=== PATIENT | male | born 1965 | race Hispanic/Latino ===

== ENCOUNTER 2019-11-09 03:08 | Inpatient (IN) | payer OTHER, SELFPAY ==
[2019-11-09] MEDS ORDERED: Morphine 4 MG/ML VIAL ONE (03:30)
[2019-11-09] MEDS ORDERED: Ondansetron PF 4 MG/2 ML Vial ONE (03:30)
[2019-11-09 04:21] LABS: #Basophils 0.1 thou/uL (0.0-0.2); #Eosinphils 0.1 thou/uL (0.0-0.7); #Lymphocytes 1.5 thou/uL (1.20-3.40); #Monocytes 0.5 thou/uL (0.11-0.59); #Neutrophils 7.3 thou/uL (1.40-6.50); %Basophils 0.7 % (0.0-1.0); %Lymphocytes 15.4 % (21.0-51.0); %Monocytes 5.7 % (0.0-10.0); %Neutrophils 77.2 % (42.0-75.0); Hemoglobin 16.8 g/dL (14.0-18.0); Mean Corpuscular HGB CONC 32.8 g/dL (32.0-36.0); Mean Corpuscular Volume 91.5 fL (78.0-98.0); Mean Platelet Volume 7.4 fL (7.4-10.4); Platelet Count 227 thou/uL (130-400); RBC Distribution Width 13.3 % (11.5-14.5); Red Blood Cell (RBC) Count 5.61 mill/uL (4.70-6.10); White Blood Cell (WBC) Count 9.5 thou/uL (4.8-10.8)
[2019-11-09 04:43] LABS: ALT (SGPT) 50 U/L (8-55); AST (SGOT) 135 U/L (5-34); Albumin 3.9 g/dL (3.5-5.0); Alkaline Phosphatase 60 U/L (40-110); Anion Gap 11 mmol/L (10-20); BUN (Urea Nitrogen) 13 mg/dL (8.4-25.7); Bilirubin, Total 1.1 mg/dL (0.2-1.2); Calc. Creatinine Clearance 0 mL/min (70-130); Calcium 7.9 mg/dL (7.8-10.44); Carbon Dioxide 24 mmol/L (22-29); Chloride 109 mmol/L (98-107); Estimated GFR-MDRD 74; Globulin 2.5 g/dL (2.4-3.5); Glucose 140 mg/dL (70-105); Lipase 159 U/L (8-78); Potassium 3.9 mmol/L (3.5-5.1); Protein, Total 6.4 g/dL (6.0-8.3); Sodium 140 mmol/L (136-145)
[2019-11-09] MEDS ORDERED: Acetaminophen 500 MG TAB ONE (05:42)
[2019-11-09] MEDS ORDERED: Ondansetron PF 4 MG/2 ML Vial IVP PRN (06:16)
[2019-11-09] MEDS ORDERED: Acetaminophen 325 MG TAB PO PRN (06:16)
[2019-11-09] MEDS ORDERED: Ondansetron ODT 4 MG TAB SL PRN (06:16)
[2019-11-09 06:32] VITALS: BMI 32.8
[2019-11-09] MEDS: Sodium Chloride 0.9% 1,000 ML IV SCH ×2 (06:41→17:26)
--- NOTE | 2019-11-09 08:05 | ULT ---
PRELIMINARY REPORT/[facility]/AFTER HOURS PROCEDURE LIMITED RIGHT UPPER QUADRANT ABDOMEN ULTRASOUND: CLINICAL HISTORY: Hx. RIGHT UPPER QUADRANT pain x 4 days. See notes on last image. Thanks. TECHNIQUE: Real-time ultrasound of the right upper quadrant with image documentation. COMPARISON: None provided. FINDINGS: LIVER: Unremarkable. GALLBLADDER: No gallstone. No wall thickening. Mild pericholecystic fluid is identified. COMMON BILE DUCT: No dilation. It measures 4.8 mm. PANCREAS: Pancreas is not well visualized due to bowel gas. RIGHT KIDNEY: A 4 mm stone is identified in the right kidney. The right kidney measures 11 x 4.9 x 5 .8 cm. IMPRESSION: Mildly distended gallbladder with pericholecystic fluid. No stones are identified. Further evaluati on with HIDA scan is recommended if patient right upper quadrant symptoms persist. Nonobstructing right kidney stone. ELECTRONICALLY SIGNED BY: Roland Jade MD Nov 09, 2019 4:46:12 AM BAKER This report is intended for review by the ordering physician only, in accordance of law. If you recei ve this report in error, please call [facility] at [phone]. FINAL REPORT EMERGENT AFTER HOURS GALLBLADDER ULTRASOUND: HISTORY: Right upper quadrant pain. FINDINGS: Real-time imaging of the right upper quadrant shows a slightly distended gallbladder. There is some f ocal fatty sparing adjacent to the gallbladder fossa. There is a question of some very minimal trace fluid adjacent to the gallbladder. The technologist does describe a positive ultrasound Cotton sign. No focal lesions are seen within the liver, which is of fairly diffuse increased echogenicity. The ri ght kidney is normal in size and not obstructed. There is an echogenic focus with shadowing in the mi d pole region, which would suggest a nonobstructing renal calculus. IMPRESSION: 1. Minimally distended gallbladder with some questionable minimal pericholecystic fluid. The technolo gist does describe a positive ultrasound Cotton sign. Consideration for hepatobiliary scan is suggest ed. 2. Fatty change of the liver. 3. Nonobstructing mid pole right renal calculus. This report is in agreement with the temporary report issued by [facility]. CODE QA POS: [facility]
--- NOTE | 2019-11-09 09:16 | PDOC.HHP ---
Hospitalist HPI - History of Present Illness Abdominal pain History of Present Illness: This is a 54-year-old male with past medical history of hypertension and hyperlipidemia who presented to the hospital with a right upper quadrant abdominal pain. The patient stated that his pain has been off and on for the past month but yesterday the pain has been severe and constant. He was not able to eat or drink anything since last night. Denies fever, chills, nausea, or vomiting. Denies chest pain or trouble breathing. Hospitalist ROS - Review of Systems All other systems reviewed; all pertinent +/- noted in HPI/Subj - Medication Medications: Active Medications Generic Name Dose Route Start Last Admin Trade Name Freq PRN Reason Stop Dose Admin Sodium Chloride 1,000 mls @ 100 mls/hr 11/09/19 06:16 11/09/19 06:41 Normal Saline 0.9% IV 11/09/19 17:15 1,000 mls .Q10H RITESH Administration Hospitalist History - Past Medical History Source: patient, family Cardiac: reports: HTN, Hyperlipidemia - Past Surgical History Past Surgical History: reports: no pertinent history - Family History Family History: reports: no pertinent history - Social History Smoking Status: Current every day smoker Alcohol: reports: Occassional Activity level: independent ambulation - Exam General Appearance: awake alert Eye: PERRL, anicteric sclera ENT: normocephalic atraumatic, no oropharyngeal lesions, moist mucosa Neck: supple, no JVD Heart: RRR, no murmur, no gallops, no rubs, normal peripheral pulses Respiratory: CTAB, no wheezes, no rales, no ronchi, normal chest expansion, no tachypnea, normal percussion Gastrointestinal: soft, no guarding, no rigidity, tender to palpation (RUQ - Cotton's sign) Extremities: no cyanosis, no clubbing, no edema Neurological: cranial nerve grossly intact, normal sensation to touch, no weakness, no focal deficits, no new deficit Psychiatric: normal affect, normal behavior, A&O x 3 Hospitalist Results - Labs Result Diagrams: 11/09/19 04:14 11/09/19 04:14 Lab results: WBC 9.5 thou/uL (4.8-10.8) 11/09/19 04:14 Hgb 16.8 g/dL (14.0-18.0) 11/09/19 04:14 Hct 51.3 % (42.0-52.0) 11/09/19 04:14 MCV 91.5 fL (78.0-98.0) 11/09/19 04:14 Plt Count 227 thou/uL (130-400) 11/09/19 04:14 Neutrophils % 77.2 % (42.0-75.0) H 11/09/19 04:14 Sodium 140 mmol/L (136-145) 11/09/19 04:14 Potassium 3.9 mmol/L (3.5-5.1) 11/09/19 04:14 Chloride 109 mmol/L (98-107) H 11/09/19 04:14 Carbon Dioxide 24 mmol/L (22-29) 11/09/19 04:14 BUN 13 mg/dL (8.4-25.7) 11/09/19 04:14 Creatinine 1.05 mg/dL (0.7-1.3) 11/09/19 04:14 Glucose 140 mg/dL (70-105) H 11/09/19 04:14 Calcium 7.9 mg/dL (7.8-10.44) 11/09/19 04:14 Total Bilirubin 1.1 mg/dL (0.2-1.2) 11/09/19 04:14 AST 135 U/L (5-34) H 11/09/19 04:14 ALT 50 U/L (8-55) 11/09/19 04:14 Alkaline Phosphatase 60 U/L (40-110) 11/09/19 04:14 Serum Total Protein 6.4 g/dL (6.0-8.3) 11/09/19 04:14 Albumin 3.9 g/dL (3.5-5.0) 11/09/19 04:14 Lipase 159 U/L (8-78) H 11/09/19 04:14 Hospitalist H&P A/P - Problem (1) Acute cholecystitis Code(s): K81.0 - ACUTE CHOLECYSTITIS Status: Acute (2) HTN (hypertension) Code(s): I10 - ESSENTIAL (PRIMARY) HYPERTENSION Status: Acute (3) Hyperlipidemia Code(s): E78.5 - HYPERLIPIDEMIA, UNSPECIFIED Status: Acute - Plan Plan: Patient with risk factors for biliary stones presented with right upper quadrant abdominal pain and tenderness on examination. No signs of sepsis are present. Ultrasound of the right upper quadrant in the ER showed distended gallbladder with pericholecystic fluid without evidence of stones or dilated common bile duct. Blood chemistry results showing slightly elevated AST and lipase but otherwise unremarkable. This is not a clear-cut case for acute cholecystitis. However, since the diagnosis is likely we will proceed with a HIDA scan. If the gallbladder is not visualized or reduced ejection fraction is present then the patient will most likely be a candidate for surgery. This was discussed with Dr. Powers.
[2019-11-09] MEDS ORDERED: Ketorolac Tromethamine 30 MG/ML VIAL IVP PRN (09:23)
--- NOTE | 2019-11-09 09:49 | RAD ---
PORTABLE CHEST: HISTORY: Right sided chest pain. COMPARISON: 01/11/2015 FINDINGS: Heart size is within normal limits considering the portable, slightly lordotic technique. The lungs a ppear clear of any infiltrates. No signs of failure. IMPRESSION: No active intrathoracic disease. POS: [facility]
[2019-11-10] MEDS: Enoxaparin Sodium 40 MG/0.4 ML SYRINGE SC SCH (07:58)
--- NOTE | 2019-11-10 09:22 | NM ---
HEPATOBILIARY SCAN: HISTORY:Right upper quadrant abdominal pain RADIOPHARMACEUTICAL: 5.5 mCi Technetium 99m Mebrofenin injected intravenously FINDINGS: There is normal tracer extraction by the liver without normal excretion into the biliary tracts and s mall bowel loops and normal filling of the gallbladder on initial imaging up to 3 hours. Delayed imaging was performed at 20 hours which demonstrated intense tracer localization within the g allbladder and tracer material in the small bowel loops.. IMPRESSION: 1. No evidence of acute cholecystitis or biliary obstruction. 2. Findings are suggestive of hepatocellular dysfunction.
[2019-11-10 09:38] LABS: Hemoglobin 18.5 g/dL (14.0-18.0); Mean Corpuscular HGB CONC 31.9 g/dL (32.0-36.0); Mean Corpuscular Hemoglobin 29.1 pg (27.0-31.0); Mean Corpuscular Volume 91.4 fL (78.0-98.0); Mean Platelet Volume 7.6 fL (7.4-10.4); Platelet Count 256 thou/uL (130-400); RBC Distribution Width 13.5 % (11.5-14.5); Red Blood Cell (RBC) Count 6.37 mill/uL (4.70-6.10); White Blood Cell (WBC) Count 7.6 thou/uL (4.8-10.8)
[2019-11-10 10:01] LABS: ALT (SGPT) 386 U/L (8-55); AST (SGOT) 459 U/L (5-34); Albumin 4.4 g/dL (3.5-5.0); Alkaline Phosphatase 101 U/L (40-110); Anion Gap 10 mmol/L (10-20); BUN (Urea Nitrogen) 8 mg/dL (8.4-25.7); Bilirubin, Total 3.1 mg/dL (0.2-1.2); Calc. Creatinine Clearance 104 mL/min (70-130); Calcium 8.6 mg/dL (7.8-10.44); Carbon Dioxide 25 mmol/L (22-29); Chloride 109 mmol/L (98-107); Estimated GFR-MDRD 80; Globulin 2.9 g/dL (2.4-3.5); Glucose 100 mg/dL (70-105); Potassium 3.8 mmol/L (3.5-5.1); Protein, Total 7.3 g/dL (6.0-8.3); Sodium 140 mmol/L (136-145)
[2019-11-10 12:00] LABS: Band 3 % (5-11); Eosinophils 2 % (0-10); Lymphocytes 22 % (21-51); MDiff Complete? YES; Monocytes 3 % (0-10); Neutrophil 63 % (42-75); RBC Morphology Normal; Reactive Lymphocytes 5 % (0-10)
[2019-11-10 12:45] LABS: Iron 220 ug/dL (65-175); Iron Binding Capacity, Total 379 mcg/dL (261-462)
[2019-11-10 13:18] LABS: HBSAg Index 0.18 S/CO (0-0.99); Hep B Core Total Ab Non-Reactive (NonReactive); Hep B Core Total Index 0.06 S/CO (0-0.79); Hep B Surf AB Non-Reactive (NonReactive); Hep B Surf Ag Non-Reactive S/CO (NonReactive); Hep C IgG Ab Non-Reactive (NonReactive); Hep C Index 0.09 S/CO (0-0.79)
--- NOTE | 2019-11-10 15:02 | CON ---
DATE OF CONSULTATION: 11/10/2019 REASON FOR CONSULTATION: Elevated LFTs and concern for possible hemochromatosis. REQUESTING PHYSICIAN: Dr. Bailey. HISTORY OF PRESENT ILLNESS: Antonio Sumner is a very pleasant 54-year-old man with a history of hypertension and hyperlipidemia. No prior history of gastrointestinal, liver, or biliary issues. He recalls about a month ago he had several days of significant right upper quadrant pain and nausea. The pain was relieved after several episodes of emesis. He had a little bit of mild diarrhea at that time. He did not seek medical care at that time. He did well for several weeks just with some mild intermittent right upper quadrant discomfort, but now for the past 2 to 3 days, he has again had severe pain in the right upper quadrant, also involving the epigastrium, associated with nausea, though no vomiting. He has not had any diarrhea during this time. There has been no fever. He presented to the emergency department yesterday, and abdominal ultrasound demonstrated some mild gallbladder wall thickening as well as mild pericholecystic fluid, but no gallstones evident. The common bile duct was normal at 4.8 mm. He was admitted to the hospital, and thereafter, had a HIDA scan performed. The HIDA scan demonstrated no evidence of biliary obstruction. There was normal filling of the gallbladder and emptying of the gallbladder. LFTs on admission showed total bilirubin only 1.1 with AST 135, but LFTs have jumped up dramatically after 1 day with total bilirubin up to 3.1, AST 459, ALT 386, and lipase 159. Ferritin is normal at 49.4. Hemoglobin was 18.5, and therapeutic phlebotomy was actually performed earlier today. Currently, the patient states he is feeling a lot better with regard to abdominal discomfort. He is no longer nauseated. He is tolerating a regular diet. PAST MEDICAL HISTORY: 1. Hypertension. 2. Hyperlipidemia. PAST SURGICAL HISTORY: None. FAMILY HISTORY: Noncontributory. Negative for GI or liver illness. Multiple family members have had cholecystectomies. SOCIAL HISTORY: He does smoke. Alcohol use is rare, none for the past couple of weeks. ALLERGIES: NO KNOWN DRUG ALLERGIES. OUTPATIENT MEDICATIONS: 1. Zetia 10 mg p.o. nightly. 2. Zocor 20 mg p.o. nightly. 3. Terazosin 2 mg daily. 4. Testosterone. INPATIENT MEDICATIONS: 1. Toradol p.r.n. 2. Lovenox 40 mg subcutaneously daily. PHYSICAL EXAMINATION: VITAL SIGNS: Temperature 98.0, pulse 75, blood pressure 124/85, and 94% oxygen saturation on room air. GENERAL: A 54-year-old man, lying in bed comfortably, in no distress. SKIN: No jaundice. No rashes were palpable. EYES: He does have mild scleral icterus. Extraocular movements intact. ENT: Mucous membranes moist. No oral lesions. LYMPHATRIC: No submandibular or supraclavicular lymphadenopathy. THYROID: Nontender to palpation. HEART: Regular rate and rhythm. LUNGS: Clear to auscultation bilaterally. ABDOMEN: Nondistended. Bowel sounds present. Soft. Some tenderness to palpation in the epigastrium, less so in the right upper quadrant. The remainder of the abdomen is nontender. No guarding or rebound tenderness. EXTREMITIES: No peripheral edema. VESSELS: Radial pulses 2+ bilaterally. NEUROLOGIC: Cranial nerves 2 through 12 intact bilaterally. No focal deficits. LABORATORY STUDIES: Total bilirubin initially 1.1, now up to 3.1; alkaline phosphatase is normal at 101; AST initially 135, now up to 459; ALT initially 50, now up to 386; albumin is 4.4. BUN is 8, creatinine 0.98, glucose 100, sodium 140, and potassium 3.9. Hemoglobin 18.5, WBC 7.6, platelets 256, and MCV normal at 91.4. Viral hepatitis serologies are all negative. Ferritin is normal at 49.4, iron 220, TIBC normal at 379, and ceruloplasmin is pending. IMAGING STUDIES: Abdominal ultrasound showed mild gallbladder distention and mild pericholecystic fluid, but no gallstones. Normal common bile duct 4.8 mm. HIDA scan showed normal filling and emptying of the gallbladder. ASSESSMENT AND PLAN: 1. Right upper quadrant pain. 2. Elevated liver function tests, acute just over the past day. Clinically, the present the patient's presentation seems most consistent with episodes of biliary colic. I note the abdominal ultrasound suggested some pericholecystic fluid, but on the other hand, I do see the normal HIDA scan, but with such an acute elevation in LFTs even after presentation, this seems less likely to represent a primary hepatocellular process to me. Obviously, we will round out the workup, get autoimmune markers, toxin screen, etc., but we will request formal surgical opinion on this as well. Trend LFTs tomorrow. If the LFTs continue to trend up and labs are otherwise unrevealing, I would get further imaging with MRCP. Thank you for the consultation. Please call anytime with questions or concerns. Job ID: [id number]
--- NOTE | 2019-11-10 16:15 | PDOC.HOSPP ---
- Subjective Encounter Date: 11/10/19 Subjective: The patient was seen and examined. He is feeling better today. Denied any abdominal pain. Stated that he feels hungry and would like to eat. HIDA scan test was completed today. - Objective Vital Signs & Weight: Vital Signs (12 hours) Temp Pulse Resp BP Pulse Ox 11/10/19 12:50 98.0 F 75 12 124/85 94 L Weight Weight 185 lb 5 oz I&O: 11/09/19 11/10/19 11/11/19 06:59 06:59 06:59 Intake Total 1000 Balance 1000 Result Diagrams: 11/10/19 09:18 11/10/19 09:18 Hospitalist ROS - Medication Medications: Active Medications Generic Name Dose Route Start Last Admin Trade Name Freq PRN Reason Stop Dose Admin Enoxaparin Sodium 40 mg 11/10/19 09:00 11/10/19 07:58 Lovenox SC Not Given 0900 RITESH Ketorolac Tromethamine 15 mg 11/09/19 09:23 11/09/19 09:50 Toradol IVP 11/14/19 09:24 15 mg Q6H PRN Administration Pain - Exam General Appearance: NAD, awake alert Eye: PERRL, anicteric sclera ENT: normocephalic atraumatic, no oropharyngeal lesions, moist mucosa Neck: supple, symmetric, no JVD, no thyromegaly, no lymphadenopathy, no carotid bruit Heart: RRR, no murmur, no gallops, no rubs, normal peripheral pulses Respiratory: CTAB, no wheezes, no rales, no ronchi, normal chest expansion, no tachypnea, normal percussion Gastrointestinal: soft, non-tender, non-distended, normal bowel sounds, no palpable masses, no hepatomegaly, no splenomegaly, no bruit Neurological: cranial nerve grossly intact, no focal deficits Hosp A/P (1) Acute cholecystitis Code(s): K81.0 - ACUTE CHOLECYSTITIS Status: Acute (2) HTN (hypertension) Code(s): I10 - ESSENTIAL (PRIMARY) HYPERTENSION Status: Acute (3) Hyperlipidemia Code(s): E78.5 - HYPERLIPIDEMIA, UNSPECIFIED Status: Acute (4) Abnormal LFTs Code(s): R94.5 - ABNORMAL RESULTS OF LIVER FUNCTION STUDIES Status: Acute (5) Biliary colic Code(s): K80.50 - CALCULUS OF BILE DUCT W/O CHOLANGITIS OR CHOLECYST W/O OBST Status: Acute - Plan 11/09: Patient with risk factors for biliary stones presented with right upper quadrant abdominal pain and tenderness on examination. No signs of sepsis are present. Ultrasound of the right upper quadrant in the ER showed distended gallbladder with pericholecystic fluid without evidence of stones or dilated common bile duct. Blood chemistry results showing slightly elevated AST and lipase but otherwise unremarkable. This is not a clear-cut case for acute cholecystitis. However, since the diagnosis is likely we will proceed with a HIDA scan. If the gallbladder is not visualized or reduced ejection fraction is present then the patient will most likely be a candidate for surgery. This was discussed with Dr. Powers. 11/10: HIDA scan showing no evidence of biliary disease. Hepatic dysfunction was noted. The patient's AST and ALT in addition to bilirubin are trending up. The right upper quadrant ultrasound did show distended gallbladder with pericholecystic fluid and gastroenterology seems to think this is related to biliary colic. We are trying to rule out other possibilities of liver disease. Paraspinal has been ordered in addition to iron studies, autoimmune studies, and ceruloplasmin. Appreciate gastroenterology surgical services. This dictation was completed using advanced voice recognition dictation software. There may be some errors in grammar, punctuation, context or verbiage that were not identified and corrected at the time of this dictation. If questions are present, please consult the author of this dictation for further clarification. It is my goal to try to catch these mistakes at the time of dictation but errors may still occur. Thank you for your understanding.
[2019-11-11 05:48] LABS: #Basophils 0.1 thou/uL (0.0-0.2); #Eosinphils 0.4 thou/uL (0.0-0.7); #Lymphocytes 2.5 thou/uL (1.20-3.40); #Monocytes 0.7 thou/uL (0.11-0.59); #Neutrophils 5.4 thou/uL (1.40-6.50); %Basophils 0.7 % (0.0-1.0); %Eosinophils 3.9 % (0.0-10.0); %Monocytes 7.6 % (0.0-10.0); %Neutrophils 59.9 % (42.0-75.0); Hemoglobin 16.9 g/dL (14.0-18.0); Mean Corpuscular HGB CONC 31.7 g/dL (32.0-36.0); Mean Corpuscular Hemoglobin 29.6 pg (27.0-31.0); Mean Corpuscular Volume 93.1 fL (78.0-98.0); Mean Platelet Volume 7.6 fL (7.4-10.4); Platelet Count 245 thou/uL (130-400); RBC Distribution Width 13.7 % (11.5-14.5); Red Blood Cell (RBC) Count 5.71 mill/uL (4.70-6.10); White Blood Cell (WBC) Count 9.1 thou/uL (4.8-10.8)
[2019-11-11 06:06] LABS: ALT (SGPT) 234 U/L (8-55); AST (SGOT) 259 U/L (5-34); Acetaminophen Less than 6.0 mcg/mL (10.0-30.0); Albumin 3.9 g/dL (3.5-5.0); Alcohol Less than 10 mg/dL (Less than 10); Alkaline Phosphatase 81 U/L (40-110); Anion Gap 10 mmol/L (10-20); BUN (Urea Nitrogen) 11 mg/dL (8.4-25.7); Bilirubin, Total 1.4 mg/dL (0.2-1.2); Calc. Creatinine Clearance 112 mL/min (70-130); Calcium 8.2 mg/dL (7.8-10.44); Carbon Dioxide 24 mmol/L (22-29); Chloride 107 mmol/L (98-107); Estimated GFR-MDRD 87; Globulin 2.6 g/dL (2.4-3.5); Glucose 113 mg/dL (70-105); Potassium 3.8 mmol/L (3.5-5.1); Protein, Total 6.5 g/dL (6.0-8.3); Salicylate Less than 8.0 mg/dL (15.0-30.0); Sodium 137 mmol/L (136-145)
[2019-11-11] MEDS: Enoxaparin Sodium 40 MG/0.4 ML SYRINGE SC SCH (08:08)
[2019-11-11 11:57] LABS: ANA Symphony (Qualitative) Negative (Negative); ANA Symphony (Quantitative) 0.2 Ratio (< 0.7 Negative); EliA Vaculitis New Method **** NEW METHOD ****; Mitochondrial Ab 0.6 U/mL (<4 Negative); dsDNA IgG Antibody Less than 0.5 IU/mL (<10 Negative)
--- NOTE | 2019-11-11 12:43 | CON ---
DATE OF CONSULTATION: 11/11/2019 CHIEF COMPLAINT: Right upper quadrant and right-sided abdominal pain. HISTORY OF PRESENT ILLNESS: This is a 54-year-old male with a history of acute onset of sharp pain in his right upper abdomen started after dinner 2 nights ago. The pain was so severe, brought him to the emergency room. He had ultrasound showing no gallstones. There was a distended gallbladder and evidence of pericholecystic fluid. He had a normal common bile duct. He has had a hepatobiliary scan showing good uptake and normal ejection fraction. No evidence of acalculous cholecystitis. His pain has resolved. He is hungry. He notes no known history of liver disease. He states he had one previous episode of this before in [place] that resolved on its own. PAST MEDICAL HISTORY: Includes hypertension and hyperlipidemia. PAST SURGICAL HISTORY: Denies. MEDICATIONS: Taken daily; 1. Zetia. 2. Zocor. 3. Terazosin. 4. Testosterone. ALLERGIES: NO KNOWN DRUG ALLERGIES. SOCIAL HISTORY: Denies smoking, alcohol, or other drugs. REVIEW OF SYSTEMS: Ten-system review of systems is otherwise negative unless described above. PHYSICAL EXAMINATION: HEENT: Sclerae are anicteric. Oropharynx clear. NECK: No lymphadenopathy. CHEST: Clear. HEART: Regular rate. ABDOMEN: Soft, nontender, nondistended. EXTREMITIES: No ischemia or edema to extremities. LABORATORY DATA: White cell count is 9, hemoglobin is 16, platelet count is 245. Sodium 137, potassium 3.8, creatinine 0.91, bilirubin 1.4, AST and ALT are 259 and 234, alkaline phosphatase normal. Lipase was 159 on 11/09, normal today. Hepatitis panel nonreactive. X-rays as above. ASSESSMENT: Right upper quadrant pain with associated hepatic dysfunction of unknown etiology. His pain has resolved. His hepatobiliary scan is normal. PLAN: I would probably hold off on cholecystectomy until the true etiology of his liver dysfunction is determined. His symptoms have appeared to resolve. He is in no danger with his HIDA scan showing good filling and ejection fraction. He has my card to follow up in my office if the pain persists. We will follow on an as-needed basis. Job ID: [id number]
--- NOTE | 2019-11-11 15:01 | PRG ---
DATE OF SERVICE: 11/11/2019 SUBJECTIVE: Mr. Sumner is feeling pretty well, but his epigastric pain does persist. He is tolerating his diet. He has been afebrile. OBJECTIVE: VITAL SIGNS: Temperature 97.7, pulse 70, blood pressure 104/70, 96% oxygen saturation on room air. GENERAL: No acute distress. HEART: Regular rate and rhythm. LUNGS: Clear to auscultation bilaterally. ABDOMEN: Bowel sounds are present. Soft. Some tenderness to palpation in the epigastrium. No guarding or rebound tenderness. EXTREMITIES: No peripheral edema. LABORATORY STUDIES: WBC 9.1, hemoglobin 16.9, platelets 245. Sodium 137, potassium 3.8, BUN 11, creatinine 0.91, glucose 113, calcium 8.2. Ferritin only 49.4, iron 220, TIBC 379. LFTs have all trended down today. Total bilirubin went down from 3.1 to 1.4. AST went from 459 to 259. ALT went from 386 to 234. Alkaline phosphatase is 81. Albumin 3.9. Serum acetaminophen, salicylate, and alcohol levels all undetectable. PEGGY is negative. AMA is negative. Smooth muscle antibody pending. Viral hepatitis serologies all negative. ASSESSMENT AND PLAN: 1. Right upper quadrant and epigastric pain. 2. Elevated liver function tests, with acute spike yesterday, now downtrending. 3. Mild lipase elevation, on presentation. Dr. Nj evaluated the patient earlier today. I appreciate his assistance and opinion. Given the patient has had clinical improvement as well as the downtrending LFTs, Dr. Nj is not planning on proceeding with any cholecystectomy at this point. I remain of the opinion that the patient's presentation likely did represent biliary colic, either a mild cholecystitis or possibly having passed non-echogenic stone or sludge. I do note the normal HIDA scan. I think the patient's diet can be advanced as tolerated. Plan to recheck LFTs tomorrow. If he has had continued improvement and the LFTs continue to trend down, then I think he could potentially be discharged from the hospital. If the LFTs were to bump up again or the patient's symptoms were to escalate, then I would get further imaging with MRCP. From a liver laboratory standpoint, we are waiting only ceruloplasmin and anti-smooth muscle antibody, which I do not expect to be abnormal or clinically significant. Job ID: [id number]
--- NOTE | 2019-11-11 15:39 | PDOC.HOSPP ---
- Subjective Encounter Date: 11/11/19 Subjective: Feels Better. - Objective Vital Signs & Weight: Vital Signs (12 hours) Temp Pulse Resp BP Pulse Ox 11/11/19 08:00 96 11/11/19 07:53 97.7 F 70 19 104/70 96 11/11/19 05:44 98.7 F 74 16 104/70 95 Weight Weight 185 lb 5 oz Result Diagrams: 11/11/19 05:18 11/11/19 05:18 Hospitalist ROS - Medication Medications: Active Medications Generic Name Dose Route Start Last Admin Trade Name Freq PRN Reason Stop Dose Admin Enoxaparin Sodium 40 mg 11/10/19 09:00 11/11/19 08:08 Lovenox SC 40 mg 0900 RITESH Administration Ketorolac Tromethamine 15 mg 11/09/19 09:23 11/09/19 09:50 Toradol IVP 11/14/19 09:24 15 mg Q6H PRN Administration Pain - Exam Eye: PERRL, anicteric sclera ENT: normocephalic atraumatic, no oropharyngeal lesions, moist mucosa Neck: supple, symmetric, no JVD, no thyromegaly, no lymphadenopathy, no carotid bruit Heart: RRR, no murmur, no gallops, no rubs, normal peripheral pulses Respiratory: CTAB, no wheezes, no rales, no ronchi, normal chest expansion, no tachypnea, normal percussion Gastrointestinal: soft, non-tender, non-distended, normal bowel sounds, no palpable masses, no hepatomegaly, no splenomegaly, no bruit Hosp A/P (1) Acute cholecystitis Code(s): K81.0 - ACUTE CHOLECYSTITIS Status: Acute (2) HTN (hypertension) Code(s): I10 - ESSENTIAL (PRIMARY) HYPERTENSION Status: Acute (3) Hyperlipidemia Code(s): E78.5 - HYPERLIPIDEMIA, UNSPECIFIED Status: Acute (4) Abnormal LFTs Code(s): R94.5 - ABNORMAL RESULTS OF LIVER FUNCTION STUDIES Status: Acute (5) Biliary colic Code(s): K80.50 - CALCULUS OF BILE DUCT W/O CHOLANGITIS OR CHOLECYST W/O OBST Status: Acute - Plan 11/09: Patient with risk factors for biliary stones presented with right upper quadrant abdominal pain and tenderness on examination. No signs of sepsis are present. Ultrasound of the right upper quadrant in the ER showed distended gallbladder with pericholecystic fluid without evidence of stones or dilated common bile duct. Blood chemistry results showing slightly elevated AST and lipase but otherwise unremarkable. This is not a clear-cut case for acute cholecystitis. However, since the diagnosis is likely we will proceed with a HIDA scan. If the gallbladder is not visualized or reduced ejection fraction is present then the patient will most likely be a candidate for surgery. This was discussed with Dr. Powers. 11/10: HIDA scan showing no evidence of biliary disease. Hepatic dysfunction was noted. The patient's AST and ALT in addition to bilirubin are trending up. The right upper quadrant ultrasound did show distended gallbladder with pericholecystic fluid and gastroenterology seems to think this is related to biliary colic. We are trying to rule out other possibilities of liver disease. Paraspinal has been ordered in addition to iron studies, autoimmune studies, and ceruloplasmin. Appreciate gastroenterology surgical services. 11/11: The patient is feeling better. Was able to tolerate his diet and is ambulating well. LFTs are trending down. Surgical team recommended against cholecystectomy. If his liver function tests and symptoms continue to improve, we will plan to discharge him tomorrow. This dictation was completed using advanced voice recognition dictation software. There may be some errors in grammar, punctuation, context or verbiage that were not identified and corrected at the time of this dictation. If questions are present, please consult the author of this dictation for further clarification. It is my goal to try to catch these mistakes at the time of dictation but errors may still occur. Thank you for your understanding.
[2019-11-12 06:04] LABS: ALT (SGPT) 145 U/L (8-55); AST (SGOT) 162 U/L (5-34); Albumin 3.8 g/dL (3.5-5.0); Alkaline Phosphatase 88 U/L (40-110); Anion Gap 10 mmol/L (10-20); BUN (Urea Nitrogen) 14 mg/dL (8.4-25.7); Bilirubin, Total 0.6 mg/dL (0.2-1.2); Calc. Creatinine Clearance 91 mL/min (70-130); Calcium 8.8 mg/dL (7.8-10.44); Carbon Dioxide 24 mmol/L (22-29); Chloride 109 mmol/L (98-107); Estimated GFR-MDRD 69; Globulin 2.7 g/dL (2.4-3.5); Glucose 120 mg/dL (70-105); Lipase 132 U/L (8-78); Protein, Total 6.5 g/dL (6.0-8.3); Sodium 139 mmol/L (136-145)
[2019-11-12] MEDS: Enoxaparin Sodium 40 MG/0.4 ML SYRINGE SC SCH (08:11)
[2019-11-12 11:55] VITALS: BP 149/95; TEMP 97.7
--- NOTE | 2019-11-12 12:53 | DIS ---
DATE OF ADMISSION: 11/09/2019 DATE OF DISCHARGE: 11/12/2019 HISTORY OF PRESENT ILLNESS AND HOSPITAL COURSE: This is a 54-year-old male with past medical history of hypertension and hyperlipidemia, who presented to the hospital with right upper quadrant abdominal pain. Right upper quadrant ultrasound in the ER revealed distended gallbladder with pericholecystic fluid with no biliary stones visible. The patient was admitted to the hospital and Surgery service was consulted. HIDA scan was subsequently obtained and did not show any abnormalities with the biliary system. His LFTs, which were initially normal, started to increase with increasing AST and ALT, and bilirubin, which peaked at 3. These numbers and his symptoms continued to improve over 48 hours with conservative management. Screening test for hepatocellular dysfunction including hepatitis panel, autoimmune panel, and iron studies were unrevealing. Per Gastroenterology, even though the etiology is unclear, it is likely that the patient had a small gallstone that has already passed. No recommendations for cholecystectomy at this time per Surgical service. The patient is stable on the day of discharge and has no new complaints. DISCHARGE INSTRUCTIONS: Activity as tolerated, regular diet, follow up with PCP in 1 week and GI in 3 to 4 weeks. DISCHARGE DIAGNOSES: 1. Biliary colic. 2. Hypertension. 3. Hyperlipidemia. 4. Obesity. DISCHARGE MEDICATIONS: 1. Ezetimibe 10 mg orally nightly. 2. Simvastatin 20 mg orally nightly. 3. Terazosin 2 mg orally daily. Job ID: [id number]
== END 2019-11-12 12:00 | disposition home or self-care (01) | DRG 446 ==
LOC: ERS 03:08 → T4-A 06:23 → OBSVTOIN 06:23
PROVIDERS: ADMIT Internal Medicine; ATTEND Internal Medicine
DX: K80.50 Calculus of bile duct without cholangitis or cholecystitis without obstruction (principal); E66.9 Obesity, unspecified; E78.5 Hyperlipidemia, unspecified; I10 Essential (primary) hypertension; F17.210 Nicotine dependence, cigarettes, uncomplicated; R79.89 Other specified abnormal findings of blood chemistry; Z68.32 Body mass index [BMI] 32.0-32.9, adult; Z98.890 Other specified postprocedural states
CPT/HCPCS: 36415; 71045; 76705; 78227; 80053; 80307; 82390; 82728; 83516; 83540; 83550; 83690; 85007; 85025; 85027; 86038; 86225; 86704; 86706; 86803; 87340; 93005; 96361; 96374; 96375; 99195; A9537; J1650; J1885; J2270; J2405

== ENCOUNTER 2021-08-17 10:42 | Outpatient (CLI) | payer SELFPAY ==
[2021-08-17 13:37] LABS: Anion Gap 11 mmol/L (10-20); BUN (Urea Nitrogen) 12 mg/dL (8.4-25.7); Calc. Creatinine Clearance 0 mL/min (70-130); Calcium 8.7 mg/dL (7.8-10.44); Carbon Dioxide 24 mmol/L (22-29); Chloride 108 mmol/L (98-107); Glucose 97 mg/dL (70-105); Potassium 4.3 mmol/L (3.5-5.1); Sodium 139 mmol/L (136-145)
[2021-08-18 11:57] LABS: SARS-CoV-2 PCR by NAA Not Detected (NotDetected)
== END 2021-08-17 10:43 | disposition home or self-care (01) ==
LOC: LABBT 10:42
PROVIDERS: ATTEND Surgery
DX: Z01.818 Encounter for other preprocedural examination (principal); Z20.822 Contact with and (suspected) exposure to COVID-19
CPT/HCPCS: 80048; 93005; 93010; U0003; U0005

== ENCOUNTER 2021-08-22 10:52 | Day surgery (SDC) | payer OTHER ==
[2021-08-19 13:15] VITALS: BMI 33.1
[2021-08-22] MEDS ORDERED: Promethazine HCl 25 MG/ML VIAL ONE (13:10)
[2021-08-22] MEDS ORDERED: Fentanyl 250 MCG/5 ML VIAL ONE (13:10)
[2021-08-22] MEDS ORDERED: Bupivacaine 0.25% HCL 30 ML VIAL ONE (13:13)
[2021-08-22] MEDS ORDERED: Lidocaine 1% w/Epinephrine 1:100K 20 ML VIAL ONE (13:13)
[2021-08-22] MEDS ORDERED: ceFAZolin 2 GM/DEX 5% 100 ML BAG ONE (13:20)
[2021-08-22] MEDS ORDERED: Ketorolac Tromethamine 30 MG/ML VIAL ONE (13:27)
[2021-08-22] MEDS ORDERED: Lidocaine 1% PF 5 ML VIAL ONE (13:27)
[2021-08-22] MEDS ORDERED: Ondansetron PF 4 MG/2 ML Vial ONE (13:27)
[2021-08-22] MEDS ORDERED: Dexamethasone 20 MG/5 ML VIAL ONE (13:27)
[2021-08-22] MEDS ORDERED: PROPOFOL 200 MG/20 ML VIAL ONE (13:27)
[2021-08-22] MEDS ORDERED: HYDROcodone/Acetaminophen 5/325 mg Tablet ONE (15:05)
== END 2021-08-22 16:05 | disposition home or self-care (01) ==
LOC: SDC 10:52
PROVIDERS: ATTEND Surgery
PROC: 0WUF0JZ Supplement Abdominal Wall with Synthetic Substitute, Open Approach (ICD-10-PCS; principal; 2021-08-22)
DX: K42.9 Umbilical hernia without obstruction or gangrene (principal); I10 Essential (primary) hypertension; G47.30 Sleep apnea, unspecified; Z79.899 Other long term (current) drug therapy
CPT/HCPCS: C1889; J1100; J1885; J2405; J2550; J2704; J3010; S0020